=== PATIENT | female | born 1960 | race African-American/Black ===

== ENCOUNTER 2019-04-07 23:10 | Observation (INO) ==
[2019-04-08 00:43] LABS: Hematocrit 40.4 VOL% (35.7-47.0); Hemoglobin 13.5 GM/DL (12.0-16.0); Mean Corpuscular HGB Conc 33.4 GM/DL (32-36); Mean Corpuscular Volume 89.8 FL (87-102); Platelet Count 275 T/CUMM (130-400); Red Cell Distribution Width 13.7 % (9.3-17.3); White Blood Count 8.3 T/CUMM (4-12)
[2019-04-08 00:44] LABS: Eosinophils % 2.2 % (0.00-10.9); Lymphocytes % 28.9 % (21.3-54.2); Mean Platelet Volume 11.3 FL (9.6-12.0); Monocytes % 6.4 % (1.7-12.7); Neutrophils % 60.8 % (38.7-73.9)
[2019-04-08 00:45] LABS: Immature Granulocytes % 0.7 %
[2019-04-08 02:03] LABS: Albumin 3.5 G/DL (3.4-5.0); Bilirubin,Total 0.4 MG/DL (0.2-1.0); Calcium 8.9 MG/DL (8.5-10.1); Osmolality,Calculated 285.4 MOS/KG (273-304); Total Protein 6.9 G/DL (6.4-8.3)
[2019-04-08 02:09] LABS: Eosinophils 1 % (0-10); Lymphocytes 30 % (20-55); Segmented Neutrophils 65 % (50-85); Total Cells Counted 100
[2019-04-08 02:10] LABS: Anisocytosis 1+; Platelet Estimate Normal
[2019-04-08] MEDS ORDERED: GLUCAGON 1 MG VIAL IM PRN (03:39)
[2019-04-08] MEDS ORDERED: ACETAMINOPHEN 325 MG TABLET PO PRN (03:39)
[2019-04-08] MEDS ORDERED: ONDANSETRON 4 MG/2 ML VIAL IV PRN (03:39)
[2019-04-08] MEDS ORDERED: DEXTROSE 10% 250 ML BAG IV PRN (03:43)
[2019-04-08 07:57] LABS: Albumin 3.4 G/DL (3.4-5.0); Bilirubin,Total 0.4 MG/DL (0.2-1.0); Osmolality,Calculated 280.7 MOS/KG (273-304); Total Protein 6.8 G/DL (6.4-8.3)
[2019-04-08] MEDS ORDERED: SODIUM CHLORIDE 0.9% 1,000 ML IV SCH (10:30)
[2019-04-08 12:34] VITALS: BP 116/72
== END 2019-04-08 13:00 | disposition home or self-care (01) ==
LOC: N.ED 23:10 → N.EDINP 23:10 → N.2W 04-08 02:37
PROVIDERS: ADMIT Internal Medicine; ATTEND Internal Medicine